=== PATIENT | male | born 1960 | race Caucasian/White ===

== ENCOUNTER 2017-06-07 22:38 | Inpatient (IN) | payer SELFPAY ==
[~2017-06-07] VITALS: Ht 188 cm; Wt 112.5 kg
--- NOTE | ~2017-06-07 | HEMODYNAMI ---
PATIENT:NILSA BANDA MEDICAL RECORD: [id number] : 58 LOCATION:[place] [address] ADMISSION DATE: 06/08/17 Generatedon:06/09/201714:23 Patient name: NILSA BANDA Patient #: [id number] SSN: : 1960 Date of study: 06/09/2017 Page: Of Hemodynamic Procedure Report Patient Data Patient Demographics Procedure consent was obtained First Name: NILSA Gender: Male Last Name: SOLO : 1960 Middle Initial: JOSE Age: 56 year(s) Patient #: [id number] Race: Unknown Additional ID: [id number] Contact details [address]: [address] [place] [address] State: [place] City: [facility] Zip code: [address] Admission Admission Data Admission Date: 06/08/2017 Admission Time: 11:14 Room #: [facility] Procedure Procedure Types Cath Procedure Peripheral Cath Diagnostic Procedure Miscellaneous Procedure Description Procedure Date Procedure Date: 06/09/2017 Procedure Start Time: 13:11 Procedure Staff Name Function Mani Harris MD Performing Physician Yazmin Woo RT Monitor Benedicto Soares RT Scrub Catherine Robb RN Nurse Procedure Data Cath Procedure Fluoroscopy Diagnostic fluoroscopy Total fluoroscopy Time: time: 13.6 min 13.6 min Diagnostic fluoroscopy Total fluoroscopy dose: dose: 1542 mGy 1542 mGy Contrast Material Contrast Material Type Amount (ml) Isovue 300 205 Entry Location Entry Primary Successful Side Size Upsize Upsize Entry Closure Succes sful Closure Location (Fr) 1 (Fr) 2 (Fr) Remarks Device Remarks Femoral Exoseal artery Diagnostic catheters Device Type Used For End Catheter Placement Merit ULTRA BOLUS FLUSH 5Fr 90CM catheter Procedure Medications Medication Administration Route Dosage Oxygen NC 3 l/min Lidocaine 1% added to field 20 Heparin Flush Bag added to field 3 bags (1000units/500ml NS) Versed I.V. 1 mg Fentanyl I.V. 50 mcg Versed I.V. 1 mg Fentanyl I.V. 50 mcg Hemodynamics Rest Heart Rate: 79 (bpm) Snapshots Pre Cath Intra NCS Post Cath Vital Signs Time Heart Resp SPO2 etCO2 NIBP (mmHg) Rhythm Pain Sedation Rate (ipm) (%) (mmHg) Status Level (bpm) 12:43:14 78 20 94 0 141/85(113) NSR 0 (11) 10(A) , No pain 12:47:28 76 96 0 133/89(113) NSR 0 (11) 10(A) , No pain 12:51:40 78 94 27.6 136/84(111) NSR 0 (11) 10(A) , No pain 12:55:49 80 93 0 140/91(114) NSR 0 (11) 10(A) , No pain 13:00:03 80 9 92 23.1 139/88(114) NSR 0 (11) 10(A) , No pain 13:04:15 80 25 92 0 138/88(121) NSR 0 (11) 10(A) , No pain 13:08:27 82 4 93 0 144/88(111) NSR 0 (11) 10(A) , No pain 13:12:41 82 17 93 0 147/94(127) NSR 0 (11) 10(A) , No pain 13:16:57 82 23 90 4.4 141/89(115) NSR 0 (11) 10(A) , No pain 13:21:11 82 19 94 28.3 139/87(112) NSR 0 (11) 10(A) , No pain 13:25:23 80 94 0 131/90(113) NSR 0 (11) 10(A) , No pain 13:29:33 80 90 0 140/89(114) NSR 0 (11) 10(A) , No pain 13:33:47 80 88 9.6 139/88(115) NSR 0 (11) 10(A) , No pain 13:38:01 82 19 90 0 140/87(116) NSR 0 (11) 10(A) , No pain 13:42:17 81 18 91 0 139/82(112) NSR 0 (11) 10(A) , No pain 13:46:29 81 91 0 142/89(121) NSR 0 (11) 10(A) , No pain 13:50:43 82 93 0 147/92(121) NSR 0 (11) 10(A) , No pain 13:54:57 83 17 92 20.8 147/96(122) NSR 0 (11) 10(A) , No pain 13:59:11 83 18 89 0.7 145/95(126) NSR 0 (11) 10(A) , No pain 14:03:25 83 18 91 11.9 147/93(119) NSR 0 (11) 10(A) , No pain 14:07:41 81 12 88 0 145/86(119) NSR 0 (11) 10(A) , No pain 14:11:55 83 12 93 0 147/96(126) NSR 0 (11) 10(A) , No pain 14:16:09 81 19 92 0 144/93(116) NSR 0 (11) 10(A) , No pain 14:20:23 81 14 94 23.8 141/91(118) NSR 0 (11) 10(A) , No pain Medications Time Medication Route Dose Verified Delivered Reason Notes Effe ctiveness by by 13:03:38 Oxygen NC 3 Catherine Catherine used for l/min Cezar Robb social science teacher RN 13:03:53 Lidocaine 1% added 20ml Catherine Mani for local to vial Cezar Harris MD anesthetic field RN 13:04:18 Heparin Flush added 3 Catherine Mani used for Bag to bags Cezar Harris MD procedure (1000units/500ml field RN NS) 13:12:48 Versed I.V. 1 mg Mani Alexander for Cezar Harris RN sedation 13:13:01 Fentanyl I.V. 50 Mani Catherine for mcg Cezar Harris RN sedation 14:00:44 Versed I.V. 1 mg Mani Alexander for Cezar Harris RN sedation 14:00:51 Fentanyl I.V. 50 Mani Alexander for Cezar Hussein RN sedation Procedure Log Time Note 12:41:37 Benedicto Soares RT (R) (CV) sent for patient. Start room use. 12:41:45 Time tracking: Regular hours 12:41:50 Plan of Care:Hemodynamics will remain stable., Cardiac rhythm will remain stable., Comfort level will be maintained., Respiratory function will remain adequate., Patient/ family verbilizes understanding of procedure., Procedure tolerated without complication., Recovers from procedure without complications.. 12:41:57 Patient received from Med II to Alert and oriented. Tansferred to table in Supine position. 12:41:59 Correct patient and procedure confirmed by team. 12:42:01 Signed procedure consent form obtained from patient. 12:42:02 ECG and BP/O2 sat monitors applied to patient. 12:42:04 Vital chart was started 12:42:05 Baseline sample Acquired. 12:42:07 Full Disclosure recording started 12:42:08 - 12:42:12 H&P Date Dictated: 06/09/2017 Within 30 days and on chart., H&P Addendu m completed by physician on day of procedure. (MUST COMPLETE FOR ALL OUTPATIENTS). 12:42:13 Pre-procedure instructions explained to patient. 12:42:14 Pre-op teaching completed and patient verbalized understanding. 12:42:21 Family in waiting room. 12:42:23 Patient NPO since Midnight. 12:42:27 Is the patient allergic to Iodine/contrast media? No. 12:42:28 Is patient on blood thinner?Yes 12:42:32 ACC The patient was administered the following blood thiners within the last 24 hours: ACCPlavix 12:42:39 Patient diabetic? Yes. 12:42:41 If diabetic: On Metformin? Yes 12:42:47 If on Metformin: Last Dose? 06/04/2017 12:42:49 ----Pre-sedation anethsthesia assessment.---- 12:42:52 Previous problem with sedation/anesthesia? No ? 12:42:55 Snore? Yes 12:42:57 Sleep apnea? Yes 12:42:59 Deviated septum? No 12:43:00 Opens mouth fully? Yes 12:43:01 Sticks out tongue? Yes 12:43:05 Airway obstruction? No ? 12:43:10 Pre procedure: right dorsailis pedis pulse 1+ Palpable, but thready & weak; easily obliterated 12:43:14 Pre procedure: right posterior tibial pulse Doppler 12:43:19 Patient pain scale 0/10 no'. 12:43:31 IV patent on arrival in right wrist with 0.9% NaCl at KVO. 12:43:34 Use device set IR Diagnostic 12:43:36 Sterile Angiographic Pack opened to sterile field. 12:43:36 Acist Manifold opened to sterile field. 12:43:37 Bag Decanter opened to sterile field. 12:43:38 Acist Syringe opened to sterile field. 12:43:39 Acist Hand Control opened to sterile field. 12:50:17 Micropuncture VSI 4FR kit opened to sterile field. 12:50:18 Terumo 5Fr Royal Sheath opened to sterile field. 12:50:19 TUBING, CONTRAST INJCTN HI PRES opened to sterile field. 12:50:20 Portero DOC .035 guide wire opened to sterile field. 12:51:58 Right groin area was prepped with chlora-prep and draped in sterile fashion 13:03:38 Oxygen 3 l/min NC was administered by Catherine Robb RN; used for procedure; 13::53 Lidocaine 1% 20ml vial added to field was administered by Mani Harris MD; for local anesthetic; 13:04:18 Heparin Flush Bag (1000units/500ml NS) 3 bags added to field was administered by Mani Harris MD; used for procedure; 13:04:25 - 13:04:27 Alarms reviewed 13:04:39 Sharps counted by scrub and verified 13:04:53 - 13:10:36 Physician arrived 13:10:44 --------ALL STOP TIME OUT------ 13:10:45 Final Timeout: patient, procedure, and site verified with staff and physician. All members of the team are in agreement. 13:10:52 Sedation plan: IV Moderate Sedation Medication:Versed, Fentanyl 13:11:03 Procedure started. 13:11:08 Local anesthetic to right femoral artery with Lidocaine 1% by Mani Harris MD.INITIAL ACCESS ONLY 13:11:10 Arterial access obtained using ultrasound guidance. 13:12:16 A Corporama ULTRA BOLUS FLUSH 5Fr 90CM catheter was advanced over the wire and used for . 13:12:48 Versed 1 mg I.V. was administered by Catherine Robb RN; for sedation; 13:13:01 Fentanyl 50 mcg I.V. was administered by Catherine Robb RN; for sedation ; 13:18:19 retsCloud Amplatz Super Stiff 75CM guide wire opened to sterile field. 13:18:55 Terumo 5Fr Royal Sheath opened to sterile field. 13:20:36 Cook Bentson 260cm 0.035 guide wire opened to sterile field. 13:26:48 Terumo ANGLE 260cm glide wire opened to sterile field. 13:26:49 Terumo 5FR ANGLED 100CM glide catheter opened to sterile field. 13:28:10 Terumo TORQUE DEVICE PLASTIC .038 opened to sterile field. 14:00:44 Versed 1 mg I.V. was administered by Catherine Robb RN; for sedation; 14:00:51 Fentanyl 50 mcg I.V. was administered by Catherine Robb RN; for sedation ; 14:07:07 A sheath was inserted into the Femoral artery 14:07:07 Sheath removed intact; hemostasis achieved with Exoseal to the Femoral artery. 14:09:57 Cordis 5Fr Exoseal opened to sterile field. 14:11:48 Procedure ended.(Physican Out) 14:12:07 Fluoroscopy time 13.60 minutes. 14:12:30 Fluoroscopy dose: 1542 mGy 14:12:30 Flurop Dose total: 1542 14:12:37 Contrast amount:Isovue 300 205ml. 14:12:39 Sharps counted by scrub and verified by R.N. 14:12:40 Procedure and supply charges have been captured, reviewed, submitted an d are correct. 14:18:04 Post Procedure Pulses reassessed and unchanged 14:18:12 Report given to [facility]. 14:23:21 Patient transfered to [facility] II with Bed. 14:23:44 Vital chart was stopped Device Usage Item Name Manufacture Quantity Catalog Number Hospital Part Current Min imal Lot# / Charge Number Stock Stock Serial# Code Sterile Cardinal 1 [id number] [id number] 5 Angiographic Health Pack Acist Acist 1 02892 125477 279514 533721 5 Manifold Medical Systems Inc Bag Decanter Microtek 1 2002S 833971 42847 950877 5 Medical Inc. Acist Syringe Acist 1 96218 427852 834721 248828 20 Medical Systems Inc Acist Hand Acist 1 17610 011400 485675 944537 5 Control Medical Systems Inc Micropuncture VSI VASCULAR 1 7266V 885190 879656 5 VSI 4FR kit SOLUTIONS Terumo 5Fr Terumo 2 [id number] 392367 815115 926212 40 Royal Sheath TUBING, Merit 1 [id number] 142810 368680 952884 5 CONTRAST Medical INJCTN HI PRES Cook DOC .035 Cook Medical 1 [id number] 321108 523776 5 [id number] guide wire Merit ULTRA Merit 1 [id number] 041154 750910 5 BOLUS FLUSH Medical 5Fr 90CM catheter [place] Sci [place] 1 [id number] 275273 602911 810946 5 Amplatz Super Scientific Stiff 75CM guide wire Cook Bentson Cook Medical 1 [id number] 381502 323825 768177 4 260cm 0.035 guide wire Terumo ANGLE Terumo 1 [id number] 693149 928798 453238 5 260cm glide wire Terumo 5FR Terumo 1 CG508 495631 08918 300305 4 ANGLED 100CM glide catheter Terumo TORQUE [place] 1 TD01 880513 993866 592203 5 DEVICE Scientific PLASTIC .038 Cordis 5Fr Cardinal 1 EX500 546418 453026 892317 10 [id number] [facility] Signature Audit [place] Stage Time Signature Unsigned Intra-Procedure 06/09/2017 Yazmin Woo 2:23:41 PM RT(R) Signatures Monitor : Yazmin Woo RT Signature : Date : Time : [place] [address] [place] [address]
[2017-06-07 23:50] LABS: HEMATOCRIT 40.3 % (42.0-54.0); HEMOGLOBIN 13.7 g/dL (13.5-17.5); LYMPHOCYTES 26.7 % (15-50); MCH 27.7 pg (26.0-34.0); MCV 81.6 fL (80.0-100.0); MEAN PLATELET VOLUME 9.9 fL (7.4-10.4); NEUTROPHILS 64.6 % (40-80); PLATELET COUNT 193 10x3/uL (130-400); RBC 4.94 10x6/uL (4.20-6.10); RDW 14.1 % (11.5-14.5); WBC 7.7 10x3/uL (4.8-10.8)
[2017-06-07 23:54] LABS: APTT 30.3 SECONDS (22.8-39.4); INR 0.92 (0.85-1.17); PROTIME 12.2 SECONDS (11.6-15.0)
[2017-06-07 23:58] LABS: ALBUMIN 3.4 g/dL (3.4-5.0); ANION GAP 12.7 mmol/L (8-16); BILIRUBIN - TOTAL 0.29 mg/dL (0.2-1.3); CARBON DIOXIDE 27.1 mmol/L (21.0-32.0); CREATININE - SERUM 1.1 mg/dL (0.6-1.3); POTASSIUM - SERUM 3.8 mmol/L (3.5-5.1); PROTEIN - SERUM 7.2 g/dL (6.4-8.2)
--- NOTE | 2017-06-08 04:45 | NUR ---
PATIENT ARRIVED FROM THE ER VIA WHEELCHAIR ALERT AND ORIENTED TO ROOM AND CALL LIGHT IN REACH, SPOUSE IS AT BEDSIDE.
[2017-06-08] MEDS ORDERED: FUROSEMIDE40 MG PO (04:50)
[2017-06-08] MEDS ORDERED: LEVOTHYROXINE100 MCG PO (04:50)
[2017-06-08] MEDS ORDERED: GLIPIZIDE10 MG PO (04:50)
[2017-06-08] MEDS ORDERED: NEURONTIN 300300 MG PO (04:51)
[2017-06-08] MEDS ORDERED: PROTONIX40 MG PO (04:51)
[2017-06-08] MEDS ORDERED: CRESTOR20 MG PO (04:52)
[2017-06-08] MEDS ORDERED: PRILOSEC10 M1 PO (04:52)
[2017-06-08] MEDS ORDERED: GLUCOPHAGE XR750 MG PO ×2 (04:53→04:57)
[2017-06-08] MEDS ORDERED: TRADJENTA5 MG PO (04:54)
[2017-06-08] MEDS ORDERED: FLAGYL500 MG PO (04:55)
[2017-06-08] MEDS ORDERED: HUMULIN R100 U/ML SC (04:55)
[2017-06-08] MEDS ORDERED: LEVAQUIN500 MG PO (04:56)
[2017-06-08] MEDS ORDERED: GLUCOPHAGE500 MG PO (04:56)
[2017-06-08] MEDS ORDERED: HYDROCODONE-APA1 TAB PO (04:56)
--- NOTE | 2017-06-08 05:31 | NUR ---
FOREST PATHOLOGIST AT BEDSIDE TO OBTAIN VITALS, WILL CONTINUE WITH PLAN OF CARE. CALL LIGHT IN REACH.
[2017-06-08 06:06] VITALS: BP 131/73; BMI 31.7
--- NOTE | 2017-06-08 06:20 | NUR ---
PT AWAKE, ALERT, ORIENTED, SITTING UP IN CHAIR. PT HAS BEEN HOSPITALIZED RECENTLY IN [place] FOR A TIA AND CVA WITH LEFT SIDED RESIDUAL WEAKNESS AND FACIAL DROOPING. PT STATES HE CAME HERE SEEKING TX FROM DR. LUZ FOR HIS EXTENSIVE CARDIO VASCULAR HX. PT STATES HE SLEEPS WITH A BIPAP Q HS, HOWEVER HE DID NOT BRING IT WITH HIM AND DESPERATELY NEEDS ONE WHILE HE IS HERE. PTS IS AT BEDSIDE. NO NEEDS AT THIS TIME, WILL CONTINUE TO MONITOR CLOSELY.
--- NOTE | 2017-06-08 07:20 | NUR ---
AM ROUNDS- PT UP TO SIDE OF BED, STATES THAT HE DID NOT SLEEP WELL BECAUSE HE FORGOT TO BRING HIS C-PAP MACHINE. RESP EVEN AND UNLABORED, NOT DEFICITS NOTED AT FROM TIA. RT WRIST IV INFUISNG NS AT 50CC/HR. BED LOW AND WHEELS LOCKED, BEDSIDE RAILS X2, CALL LIGHT IN REACH, NAD NOTED, WILL CONTINUE PLAN OF CARE.
[2017-06-08 07:33] VITALS: BP 149/87
--- NOTE | 2017-06-08 08:30 | NUR ---
INFORMED PT THAT HE NEEDS TO BE NPO FOR CTA OF THE CAROTID, PT VERBALIZED UNDERSTANDING. PT UP TO CHAIR, DENIES ANY NEEDS AT THIS TIME. CALL LIGHT IN REACH, SLEEPING IN THE BED, NAD NOTED.
--- NOTE | 2017-06-08 11:56 | NUR ---
PT USES A BIPAP AT HOME, LIVES IN [place] SO IS NOT ABLE TO GET IT. TALKED TO DR. WHITE AND ORDER RECEIVED FROM DR. WHITE TO ORDER BIPAP FOR PT TO USE HERE.
[2017-06-08 13:17] VITALS: Ht 188 cm; Wt 112.5 kg
--- NOTE | 2017-06-08 13:48 | NUR ---
RESPIRATORY THERAPIST AT BEDSIDE TO SET UP BIPAP. PT UP TO SIDE OF BED, DENIES ANY NEEDS AT THIS TIME. AT BEDSIDE, CALL LIGHT IN REACH, NAD NOTED.
--- NOTE | 2017-06-08 14:16 | NUR ---
EXPLAINED RATIONAL FOR SCD'S PT REFUSED TO WEAR SCDS AT THIS TIME, STATED THAT HE WOULD WEAR THEM TONIGHT. PT UP TO CHAIR, DENIES ANY NEEDS, CALL LIGHT IN REACH, AT BEDSIDE, NAD NOTED.
[2017-06-08 14:39] LABS: APPEARANCE CLEAR (CLEAR); COLOR YELLOW (YELLOW)
[2017-06-08 14:40] LABS: BILIRUBIN NEGATIVE (NEGATIVE); GLUCOSE 250 mg/dL (NEGATIVE); KETONE NEGATIVE (NEGATIVE); NITRITE NEGATIVE (NEGATIVE); PROTEIN 2+ mg/dL (NEGATIVE); UROBILINOGEN NORMAL (NORMAL)
[2017-06-08 15:34] VITALS: BP 158/91
--- NOTE | 2017-06-08 16:25 | NUR ---
RECEIVED CALL FROM DANNI FROM IR. HE STATED THAT HE TALKED TO ANGIE LUZ NURSE ABOUT ORDERS FOR 4 VESSEL ART. THAT IT WILL HAVE TO BE DONE IN THE AM. TO KEEP PT NPO AFTER MIDNIGHT AND GET CONSENTS AND ORDER FOR MORNING LABS. HOLD MORNING DOSE PLAVIX.
--- NOTE | 2017-06-08 16:59 | NUR ---
BLOOD SUGAR OF 265, 6UNITS OF HUMULIN R GIVEN PER S/S. PT FIXING TO EAT DINNER, UP TO SIDE OF BED, DENIES ANY NEEDS AT THIS TIME. CALL LIGHT IN REACH, NAD NOTED, WILL CONTINUE TO MONITOR.
[2017-06-08 17:43] LABS: BASOPHILS 0.6 % (0-2); EOSINOPHILS 5.2 % (0-7); HEMATOCRIT 41.1 % (42.0-54.0); HEMOGLOBIN 14.1 g/dL (13.5-17.5); IMMATURE GRANULOCYTES 0.2 % (0-5); LYMPHOCYTES 26.9 % (15-50); MCH 28.3 pg (26.0-34.0); MCHC 34.3 g/dL (31.0-37.0); MCV 82.5 fL (80.0-100.0); MONOCYTES 6.4 % (2-11); NEUTROPHILS 60.7 % (40-80); PLATELET COUNT 189 10x3/uL (130-400); RBC 4.98 10x6/uL (4.20-6.10); RDW 14.2 % (11.5-14.5); WBC 8.4 10x3/uL (4.8-10.8)
[2017-06-08 17:53] LABS: APTT 29.4 SECONDS (22.8-39.4); INR 0.92 (0.85-1.17); PROTIME 12.2 SECONDS (11.6-15.0)
--- NOTE | 2017-06-08 19:53 | NUR ---
PT STATED THAT HE IS READY FOR BED, HS MEDS GIVEN EARLY. AT BED SIDE.
[2017-06-08 20:00] VITALS: BP 135/78
--- NOTE | 2017-06-08 23:09 | NUR ---
PT RESTING ON LEFT SIDE, RESPERATIONS EVEN, BIPAP IN USE.
--- NOTE | 2017-06-09 02:03 | NUR ---
CALL LIGHT IN REACH, WILL CONTINUE WITH PLAN OF CARE. 85 SR ON TELEMETRY
[2017-06-09 04:00] VITALS: BP 106/58
[2017-06-09 06:23] LABS: BASOPHILS 0.5 % (0-2); EOSINOPHILS 5.6 % (0-7); HEMATOCRIT 42.3 % (42.0-54.0); HEMOGLOBIN 14.4 g/dL (13.5-17.5); IMMATURE GRANULOCYTES 0.2 % (0-5); LYMPHOCYTES 24.9 % (15-50); MCH 28.4 pg (26.0-34.0); MCV 83.4 fL (80.0-100.0); MEAN PLATELET VOLUME 10.2 fL (7.4-10.4); MONOCYTES 8.2 % (2-11); NEUTROPHILS 60.6 % (40-80); PLATELET COUNT 202 10x3/uL (130-400); RBC 5.07 10x6/uL (4.20-6.10); RDW 14.3 % (11.5-14.5); WBC 8.4 10x3/uL (4.8-10.8)
[2017-06-09 06:38] LABS: APTT 30.4 SECONDS (22.8-39.4); INR 0.89 (0.85-1.17); PROTIME 11.8 SECONDS (11.6-15.0)
--- NOTE | 2017-06-09 07:05 | NUR ---
AM ROUNDS- PT IN BED, STATES HE HAD A BETTER NIGHT, HE ACTUALLY GOT SOME SLEEP. RESP EVEN AND UNLABORED, RT WRIST SL. PT HAS BEEN NPO SINCE MIDNIGHT. BED LOW AND WHEELS LOCKED, BEDSIDE RAILS X2, CALL LIGHT IN REACH, NAD NOTED, WILL CONTINUE TO MONITOR.
[2017-06-09 07:10] LABS: CHOL - HDL RATIO 5.9 ratio (2.3-4.9); LDL-HDL RATIO 2.9 ratio (1.5-3.5); THYROID STIMULATING HORMONE 5.42 uIU/mL (0.36-3.74)
[2017-06-09 07:15] LABS: HEMOGLOBIN A1C 9.6 % (4.8-6.0)
[2017-06-09 07:22] LABS: ANION GAP 19.4 mmol/L (8-16); CARBON DIOXIDE 21.9 mmol/L (21.0-32.0); CREATININE - SERUM 1.1 mg/dL (0.6-1.3); POTASSIUM - SERUM 4.3 mmol/L (3.5-5.1)
[2017-06-09 08:21] VITALS: BP 142/76
--- NOTE | 2017-06-09 08:30 | NUR ---
PT'S AT NURSES STATION ASKING WHAT TIME PT IS GOING FOR PROCEDURE. CALLED IR AND SPOKE WITH ADDIE ASKED HER IF SHE KNEW WHAT TIME PT WAS GOING FOR PROCEDURE. ADDIE STATED THAT IT WOULD PROBABLY BE TODAY AFTER LUNCH, AND THAT HE COULD HAVE HIS AM MEDS INCLUDING HIS PLAVIX. ADDIE WILL CALL BACK LATER TO GIVE EXACT TIME FOR PROCEDURE. NOTIFIED PT AND .
--- NOTE | 2017-06-09 08:56 | NUR ---
ADMINISTERED AM MEDS WITH A SIP OF WATER, PT WANTS TO TAKE TRADJENTA AFTER HE IS ABLE TO EAT. PT DENIES ANY NEEDS AT THIS TIME. CALL LIGHT IN REACH, NAD NOTED.
[2017-06-09 12:16] VITALS: BP 135/75
--- NOTE | 2017-06-09 12:22 | NUR ---
PT TRANSFERED TO IR, VIA BED, NAD NOTED.
--- NOTE | 2017-06-09 14:14 | EC ---
PATIENT:NILSA BANDA DATE OF SERVICE: 06/08/17 SEX: M MEDICAL RECORD: [id number] DATE OF : 58 LOCATION:D.M2 D.211 AGE OF PATIENT: 56 ADMISSION DATE: 06/08/17 REFERRING PHYSICIAN: INTERPRETING PHYSICIAN: CORTNEY MARTINEZ MD ECHOCARDIOGRAM REPORT ECHO CHARGES 4 ECHO COMPLETE CLINICAL DIAGNOSIS: TIA/CVA ASSESS FOR CLOTS HX OF CAD/CABG/HTN/ICD ECHOCARDIOGRAPHIC MEASUREMENTS (adult normal given) AC root (d.<3.7cm) 1.8 cm LV Septum d (<1.2 cm> 1.3 cm Valve Excursion 1.1 cm LV Septum (systole) 1.8 cm Left Atria (s.<4.0cm> 3.6 cm LVPW d(<1.2cm) 1.4 cm RV (d.<2.3cm) 3.9 cm LVPW (sytole) 1.6 cm LV diastole(<5.6CM) 6.4 cm MV E-F(>70mm/sec) cm LV systole 4.7 cm LVOT Diameter 1.7 cm MV exc.(>10mm) 2.2 cm Est.ejection fraction (50-75%) % Pericardial Effusion N DOPPLER: LVIT cm/sec A 72.0 cm/sec E 83.0 cm/sec LA cm/sec RVSP 25 mmHg LVOT 96 cm/sec AOP1/2T m/s Asc. Ao 155 cm/sec RVOT 95 cm/sec RA cm/sec PA 113 cm/sec AV Gradient Peak 9.63 mmHg AV Mean 5.76 mmHg AV Area 1.1 cm MV Gradient Peak 4.59 mmHg MV Mean 1.83 mmHg MV Area cm COMMENTS: Operations Logistics Analyst: 2 ZAHIRA GR Fitter Machinist: 1 Dr. Martinez TAPE# PACS DATE OF SERVICE: 06/08/2017 PROCEDURE: Echocardiogram FINDINGS: 1. Left ventricular chamber size is mildly dilated. Left ventricular systolic function is mildly reduced, overall ejection fraction 45% to 50%. 2. Left atrium, right atrium, and right ventricle chamber sizes are within normal limits. Left atrium measures 3.6 cm. 3. Valvular structures: Aortic valve demonstrates mild calcific aortic ECHOCARDIOGRAM REPORT [id number] NILSA BANDA stenosis. Valve area calculates to 1.1 cm-squared with a gradient of 10 mm across the valve. The remaining valvular structures have normal structure and motion. 4. Doppler interrogation reveals mild to moderate mitral regurgitation, mild tricuspid regurgitation, no other valvular insufficiency or stenosis. Pulmonary systolic pressure is preserved at 25 mmHg. 5. No evidence of pericardial effusion or left ventricular thrombus. TRANSINT:[id number] Voice Confirmation ID: [id number] DOCUMENT ID: [id number] CORTNEY MARTINEZ MD at 1414 CC: [id number] DICTATION DATE: 06/09/17 1059 MANUAL TESTER: 06/09/17 1153 ADM IN [facility] [address] [id number]
--- NOTE | 2017-06-09 14:43 | NUR ---
RECEIVED PT BACK TO ROOM 2116 VIA BED. PT A/O X4, NO BLEEDING OR HEMATOMA NOTED TO RT GROIN. DRESSING CLEAN AND INTACT. VITAL SIGNS STABLE, PLACED MONITOR BACK ON AND PROVIDED PT WITH URINAL. INSTRUCTED PT TO LAY FLAT UNTIL 1714. PT VERBALIZED UNDERSTANDING. PLACED ON FREQUENT VITAL SIGNS. NAD NOTED, WILL CONTINUE TO MONITOR.
[2017-06-09 16:44] VITALS: BP 145/83
--- NOTE | 2017-06-09 18:00 | NUR ---
AT BEDSIDE NOTIFIED THIS NURSE THAT DR. LUZ STATED THAT PT COULD GO HOME TONIGHT IF IT WAS OKAY WITH DR. WHITE AND DR. MIRANDA. TRIED TO EXPLAINED TO PT AND THAT IT WOULD PROBABLY BE BEST IF THEY WAITED UNTIL IN THE AM TO GO HOME BECAUSE I WOULD HAVE TO CALL DR. WHITE AND DR. MIRANDA AND WAIT FOR THEM TO CALL ME BACK AND THEN GET THE DISCHARGE PAPERS READY. STATED THAT SHE RAN OUT OF HER MEDICATIONS AND THAT HER PHARMACY IN [place] CLOSES AT ONE SO THEY HAVE TO LEAVE TONIGHT TO BE ALBE TO MAKE IT BY ONE TO THE PHARMACY. INFORMED PT THAT I WOULD PAGE DR. WHITE AND DR. MIRANDA SOON I SAW A NOTE FROM DR. LUZ SAYING IT WAS OK FOR PT TO D/C TODAY. PT VERBALIZED UNDERSTANDING.
[2017-06-09 20:00] VITALS: BP 118/63
[2017-06-10] VITALS: BP 115/65
--- NOTE | 2017-06-10 00:52 | NUR ---
INIITAL ROUNDS COMPELTED AT 1914 HRS. PT DENIED ANY DISCOMFORT. ASSESSMENT COMPLETED AT 1954 HRS. VSS. SR PER CM HR 78. IV TO L HAND SL. ALERT AND ORIENTED TO PERSON, PLACE AND TIME. R EYE RED. PT STATES HAS CHRONIC BLURRY VISION. R GROIN CEAN, DRY AND INTACT. PM MEDS GIVEN. PT CURRENTLY RESTING WITH EYES CLOSED. RESP EVEN AND REGULAR WITH BPAP ON AT BEDSIDE. SR UP X2, CALL LIGHT WITHIN REACH.
--- NOTE | 2017-06-10 02:43 | NUR ---
PT RESTING WITH EYES CLOSED. RESP EVEN AND REGULAR. SR UP X2, CALL LIGHT WITHIN REACH.
[2017-06-10 04:00] VITALS: BP 126/74
--- NOTE | 2017-06-10 04:38 | NUR ---
NO NEURO DEFICITS NOTED. PT DENIES ANY DISCOMFORT. EQUAL AND STRONG HAND AND FOOT STRENGHT. JEROME. ALERT AND ORIENTED TO PERSON, PLACE AND TIME. FOLLOWS COMMANDS. R GROIN CLEAN, DRY AQND INTACT. PALPABLE PEDAL PULSES. BIPAP IN USE. AT BEDSIDE.
--- NOTE | 2017-06-10 06:28 | NUR ---
VSS THROUGHOUT NIGHT. SR PER CM. AM FSBS 312. 8 UNITS REG INSULIN SUB-Q TO UPPER R ARM PER S/S. NEEDS MET; WILL CONTINUE TO MONITOR.
--- NOTE | 2017-06-10 07:30 | NUR ---
RECEIVED PT SITTING UP ON SIDE OF BED RESP UNLABORED SKIN W/D COLOR WNL DENIES ANY NEEDS OR DISCOMFORT
[2017-06-10 08:00] VITALS: BP 127/71
[2017-06-10 12:00] VITALS: BP 135/83
[2017-06-10] MEDS ORDERED: SYNTHROID112 MCG PO (15:55)
[2017-06-10] MEDS ORDERED: METFORMIN HCL500 M1 PO (15:55)
[2017-06-10] MEDS ORDERED: CRESTOR10 MG PO (15:56)
[2017-06-10] MEDS ORDERED: ASPIRIN81 MG PO (15:56)
[2017-06-10] MEDS ORDERED: ELIQUIS5 MG PO (15:57)
--- NOTE | 2017-06-10 16:31 | NUR ---
PT STATES HE TOOK FLU VACCINE LAST MONTH AND TOOK PNEUMONIA VACCINE LAST YEAR
--- NOTE | 2017-06-10 17:00 | NUR ---
REVIEWED DISCHARGE INSTRUCTIONS WITH PT STATES UNDERSTANDING COPY GIVEN DCD SALINE LOCK TO RT HAND WITH IV CATHETER INTACT SITE FREE OF REDNESS OR EDEMA PT DISCHARGED HOME LEFT UNIT VIA W/C IN STABLE CONDITIONA WITH ALL PERSONAL BELONGINGS
== END 2017-06-10 17:00 | disposition home or self-care (01) | DRG 65 ==
LOC: D.ER 22:38 → D.M2 06-08 01:18 → OBSVTIME 06-08 01:18 → D.M2 06-08 11:14
PROVIDERS: Emergency Medicine; General Practice; Internal Medicine Cardiovascular Disease; ADMIT Family Medicine
PROC: B31G1ZZ Fluoroscopy of Bilateral Vertebral Arteries using Low Osmolar Contrast (ICD-10-PCS; 2017-06-09)
PROC: B3151ZZ Fluoroscopy of Bilateral Common Carotid Arteries using Low Osmolar Contrast (ICD-10-PCS; principal; 2017-06-09 12:30)
DX: I63.8 Other cerebral infarction (principal); G81.91 Hemiplegia, unspecified affecting right dominant side; R40.2363 Coma scale, best motor response, obeys commands, at hospital admission; R40.2143 Coma scale, eyes open, spontaneous, at hospital admission; R40.2253 Coma scale, best verbal response, oriented, at hospital admission; H53.2 Diplopia; Z95.0 Presence of cardiac pacemaker; E11.40 Type 2 diabetes mellitus with diabetic neuropathy, unspecified; J44.9 Chronic obstructive pulmonary disease, unspecified; K21.9 Gastro-esophageal reflux disease without esophagitis; E78.5 Hyperlipidemia, unspecified; E03.9 Hypothyroidism, unspecified; I65.22 Occlusion and stenosis of left carotid artery; Z86.73 Personal history of transient ischemic attack (TIA), and cerebral infarction without residual deficits; Z72.0 Tobacco use

== ENCOUNTER 2017-06-22 21:03 | Emergency (ER) | payer SELFPAY ==
[~2017-06-22 21:03] MED LIST: ASPIRIN81 MG PO; CRESTOR10 MG PO; CRESTOR20 MG PO; ELIQUIS5 MG PO; FLAGYL500 MG PO; FUROSEMIDE40 MG PO; GLIPIZIDE10 MG PO; GLUCOPHAGE XR750 MG PO; GLUCOPHAGE500 MG PO; HUMULIN R100 U/ML SC; HYDROCODONE-APA1 TAB PO; LEVAQUIN500 MG PO; LEVOTHYROXINE100 MCG PO; METFORMIN HCL500 M1 PO; NEURONTIN 300300 MG PO; PRILOSEC10 M1 PO; PROTONIX40 MG PO; SYNTHROID112 MCG PO; TRADJENTA5 MG PO
[2017-06-22 21:29] LABS: BASOPHILS 0.7 % (0-2); EOSINOPHILS 4.4 % (0-7); HEMATOCRIT 42.6 % (42.0-54.0); HEMOGLOBIN 14.6 g/dL (13.5-17.5); IMMATURE GRANULOCYTES 0.4 % (0-5); MCH 28.5 pg (26.0-34.0); MCHC 34.3 g/dL (31.0-37.0); MEAN PLATELET VOLUME 10.2 fL (7.4-10.4); MONOCYTES 6.2 % (2-11); NEUTROPHILS 67.3 % (40-80); PLATELET COUNT 187 10x3/uL (130-400); RBC 5.13 10x6/uL (4.20-6.10); RDW 13.9 % (11.5-14.5); WBC 9.2 10x3/uL (4.8-10.8)
[2017-06-22 21:46] LABS: ALBUMIN 3.3 g/dL (3.4-5.0); ALKALINE PHOSPHATASE 87 U/L (46-116); ALT (SGPT) 20 U/L (10-68); BILIRUBIN - TOTAL 0.28 mg/dL (0.2-1.3); CALCIUM 8.9 mg/dL (8.5-10.1); CARBON DIOXIDE 25.2 mmol/L (21.0-32.0); CHLORIDE - SERUM 95 mmol/L (98-107); CREATININE - SERUM 1.3 mg/dL (0.6-1.3); POTASSIUM - SERUM 3.7 mmol/L (3.5-5.1); PROTEIN - SERUM 7.3 g/dL (6.4-8.2); SODIUM 131 mmol/L (136-145); UREA NITROGEN 18 mg/dL (7-18); eGFR NON AFRICAN AMERICAN 60 mL/min (90-120)
[2017-06-22 21:51] LABS: CALC OSMOLALITY 287 mosm/kg (275-300); GLUCOSE 510 mg/dL (74-106)
[2017-06-22 22:02] LABS: MAGNESIUM - SERUM 1.7 mg/dL (1.8-2.4)
== END 2017-06-23 00:07 | disposition home or self-care (01) ==
LOC: D.ER 21:03
PROVIDERS: Emergency Medicine
DX: G51.0 Bell's palsy (principal); E11.65 Type 2 diabetes mellitus with hyperglycemia; R74.0 Nonspecific elevation of levels of transaminase and lactic acid dehydrogenase [LDH]; E83.42 Hypomagnesemia; F17.200 Nicotine dependence, unspecified, uncomplicated; J44.9 Chronic obstructive pulmonary disease, unspecified; I10 Essential (primary) hypertension